=== PATIENT | female | born 1985 | race Caucasian/White ===

== ENCOUNTER 2016-10-07 07:01 | Emergency (ER) | payer OTHER | END 2016-10-07 07:30 | disposition left against medical advice (07) | LOC: M ED 07:01 | DX: R10.9 Unspecified abdominal pain (principal); Z53.29 Procedure and treatment not carried out because of patient's decision for other reasons ==

== ENCOUNTER → 2016-12-27 | Outpatient (REF) | payer OTHER | LOC: M SFHCLERA 19:33 | PROVIDERS: ATTEND Nurse Practitioner Family | DX: R50.9 Fever, unspecified (principal) ==

== ENCOUNTER → 2017-02-04 | Outpatient (REF) | payer OTHER | LOC: M SFHCLERA 10:47 | PROVIDERS: ATTEND Physician Assistant | DX: J02.9 Acute pharyngitis, unspecified (principal) ==

== ENCOUNTER → 2018-12-23 | Outpatient (CLI) | payer OTHER ==
[2018-12-23 10:11] LABS: HEMATOCRIT 39.9 % (36.0-47.0); HEMOGLOBIN 12.6 g/dl (12.0-15.5); MEAN CORPUSCULAR HEMOGLOBIN 27.6 pg (27.0-33.0); MEAN CORPUSCULAR HGB CONC 31.6 g/dl (32.0-36.5); MEAN CORPUSCULAR VOLUME 87.3 fl (80.0-96.0); PLATELET COUNT, AUTOMATED 320 10^3/uL (150-450); RED BLOOD COUNT 4.57 10^6/uL (4.00-5.40); WHITE BLOOD COUNT 9.8 10^3/uL (4.0-10.0)
[2018-12-23 10:36] LABS: ALBUMIN 3.8 GM/DL (3.2-5.2); ALT/SGPT 18 U/L (12-78); BILIRUBIN,TOTAL 0.5 MG/DL (0.2-1.0); BLOOD UREA NITROGEN 11 MG/DL (7-18); CALCIUM LEVEL 8.7 MG/DL (8.5-10.1); CARBON DIOXIDE LEVEL 25 MEQ/L (21-32); CHLORIDE LEVEL 109 MEQ/L (98-107); CHOLESTEROL LEVEL 141 MG/DL (<200); CHOLESTEROL RISK RATIO 3.357 (<5); CREATININE FOR GFR 0.63 MG/DL (0.55-1.30); GLOMERULAR FILTRATION RATE > 60.0 (>60); GLUCOSE, FASTING 90 MG/DL (70-100); HDL CHOLESTEROL 42 MG/DL (>40); LDL CHOLESTEROL 76 MG/DL (<100); NON-HDL-C 99 MG/DL; POTASSIUM SERUM 4.3 MEQ/L (3.5-5.1); SODIUM LEVEL 140 MEQ/L (136-145); THYROID STIMULATING HORMONE 0.266 uIU/ML (0.358-3.740); TOTAL PROTEIN 6.9 GM/DL (6.4-8.2); TRIGLYCERIDES LEVEL 114 MG/DL (<150)
[2018-12-23 10:37] LABS: TOTAL 25(OH) VITAMIN D 25.6 NG/ML (30.0-100.0)
== END ==
LOC: M LAB 09:22
PROVIDERS: ATTEND Nurse Practitioner Family
DX: R53.83 Other fatigue (principal); E55.9 Vitamin D deficiency, unspecified; Z83.3 Family history of diabetes mellitus; Z82.49 Family history of ischemic heart disease and other diseases of the circulatory system

== ENCOUNTER → 2018-12-24 | Outpatient (CLI) | payer OTHER ==
[2018-12-24 09:55] LABS: FREE T3 3.1 PG/ML (2.2-4.0); THYROXINE (T4) 9.8 UG/DL (4.5-12.0)
[2018-12-24 09:58] LABS: THYROID PEROXIDASE ANTIBODY < 28.0 U/ML (<60.0)
== END ==
LOC: M LAB 08:39
PROVIDERS: ATTEND Nurse Practitioner Family
DX: R53.83 Other fatigue (principal)

== ENCOUNTER → 2019-02-05 | Outpatient (REF) | payer OTHER | LOC: M LAB REF 11:53 | PROVIDERS: ATTEND Internal Medicine Endocrinology, Diabetes & Metabolism | DX: E04.1 Nontoxic single thyroid nodule (principal) ==

== ENCOUNTER 2019-03-03 08:52 | Day surgery (SDC) | payer OTHER ==
[~2019-03-03] VITALS: Ht 170.2 cm; Wt 68.9 kg
[~2019-03-03 08:52] MED LIST: LIDOCAINE 1% MDV 20ML VIAL SQ PRN; LR 1,000 ML IV ONE; SERT25TA85 PO; ceFAZolin SOD 1 GM in D5W MINI-BAG PLUS 50 ML IV ONE
[2019-03-03 09:06] VITALS: BP 105/78
[2019-03-03] MEDS: BUPIVACAINE/EPIN 0.25% 30 ML VIAL As Ordered ONE ×2 (09:45→09:46)
[2019-03-03] MEDS ORDERED: ONDANSETRON 4MG/2ML VIAL (J2405) As Ordered ONE (10:08)
[2019-03-03] MEDS ORDERED: MIDAZOLAM INJ 2 MG/2 ML VIAL (J2250) As Ordered ONE (10:08)
[2019-03-03] MEDS ORDERED: fentaNYL 100 MCG/2 ML INJECTION (J3010) As Ordered ONE (10:08)
[2019-03-03] MEDS ORDERED: dexameTHASONE 4 MG/ML 1ML VIAL (J1100) As Ordered ONE (10:08)
[2019-03-03] MEDS ORDERED: LIDOCAINE 2% INJ 100 MG/5 ML SDV (FOR ANES.) As Ordered ONE (10:08)
[2019-03-03] MEDS ORDERED: PROPOFOL 200 MG/20 ML VIAL As Ordered ONE (10:08)
[2019-03-03] MEDS ORDERED: KETOROLAC 60 MG/2 ML VIAL (J1885) As Ordered ONE (10:08)
[2019-03-03] MEDS ORDERED: ePHEDrine SULFATE 25 MG/5 ML(5MG/ML) SYRINGE As Ordered ONE (10:18)
--- NOTE | 2019-03-03 10:47 | RO ---
DATE OF PROCEDURE: 03/03/2019 PREOPERATIVE DIAGNOSIS: Right breast mass. POSTOPERATIVE DIAGNOSIS: Right breast mass. PROCEDURE: Right breast lumpectomy. SURGEON: Dr. Rocky Mark MARKETING CONTENT MANAGER: ANESTHESIA: IV sedation plus local. ESTIMATED BLOOD LOSS: Minimal. FLUIDS: Crystalloid. BRIEF PROCEDURE SUMMARY: The patient was taken operating room and was given general anesthesia. After adequate anesthesia and preoperative antibiotics were given. the patient was prepped and draped in the usual sterile fashion. Next, a periareolar incision was made after identifying the lump and after placing local in this area. The incision was made with not only skin knife but electrocautery was used to cut through dermis and underlying subcutaneous tissue. The lesion was well visualized and was taken down with a combination of blunt and sharp dissection. This was removed in its entirety and sent to pathology. Next, the operative field was clean and dry and the dermis was brought together with #3-0 Vicryl and #4-0 Vicryl subcuticular was used to approximate the skin. Steri-Strips and a dry sterile dressing was applied. The patient was awakened from her sedation and brought to the recovery room awake, alert and hemodynamically stable. Sponge and needle counts correct times two.
== END 2019-03-03 11:31 | disposition home or self-care (01) ==
LOC: M SDC 08:52
PROVIDERS: ATTEND Surgery
DX: D24.1 Benign neoplasm of right breast (principal); F41.9 Anxiety disorder, unspecified; Z79.899 Other long term (current) drug therapy; Z98.51 Tubal ligation status; Z72.0 Tobacco use
CPT/HCPCS: 19301; 88305; J0690; J1100; J1885; J2250; J2405; J3010

== ENCOUNTER → 2021-02-02 | Outpatient (CLI) | payer OTHER ==
[~2021-02-02] MED LIST changes: -LIDOCAINE 1% MDV 20ML VIAL SQ PRN; -LR 1,000 ML IV ONE; -ceFAZolin SOD 1 GM in D5W MINI-BAG PLUS 50 ML IV ONE
== END ==
LOC: M WUC 13:01
PROVIDERS: ATTEND Registered Nurse
DX: M21.6X9 Other acquired deformities of unspecified foot (principal)

== ENCOUNTER → 2021-07-04 | Outpatient (CLI) | payer OTHER ==
--- NOTE | 2021-07-04 15:00 | REP ---
INDICATION: LOW BACK AND HIP PAIN COMPARISON: 04/24/2016 TECHNIQUE: AP, lateral, bilateral oblique, and coned-down views of the lumbar spine. FINDINGS: Alignment and lordosis maintained. Vertebral bodies are intact. No acute fracture/compression injury or subluxation. Disc spaces are relatively normal/age-appropriate. No obvious spondylolysis or spondylolisthesis. IMPRESSION: Normal age-appropriate lumbosacral Spine series. <Electronically signed by Kvng Nunez > 07/04/21 [id number]
--- NOTE | 2021-07-04 15:00 | REP ---
INDICATION: LOW BACK AND HIP PAIN. COMPARISON: None. TECHNIQUE: A single AP view of the pelvis was performed. FINDINGS: The hip joint spaces are symmetric and relatively well maintained. There is no acute fracture or destructive osseous lesion. IMPRESSION: Within normal limits <Electronically signed by Patrice Ruiz > 07/04/21 [id number]
[2021-07-04 16:09] LABS: HEMATOCRIT 43.2 % (36.0-47.0); HEMOGLOBIN 13.6 g/dl (12.0-15.5); MEAN CORPUSCULAR HEMOGLOBIN 28.4 pg (27.0-33.0); MEAN CORPUSCULAR HGB CONC 31.5 g/dl (32.0-36.5); MEAN CORPUSCULAR VOLUME 90.2 fl (80.0-96.0); PLATELET COUNT, AUTOMATED 328 10^3/uL (150-450); RED BLOOD COUNT 4.79 10^6/uL (4.00-5.40)
[2021-07-04 16:41] LABS: ALT/SGPT 14 U/L (12-78); BILIRUBIN,TOTAL 0.5 MG/DL (0.2-1.0); BLOOD UREA NITROGEN 10 MG/DL (7-18); CALCIUM LEVEL 9.3 MG/DL (8.5-10.1); CARBON DIOXIDE LEVEL 26 MEQ/L (21-32); CHLORIDE LEVEL 105 MEQ/L (98-107); CHOLESTEROL LEVEL 141 MG/DL (<200); CHOLESTEROL RISK RATIO 2.877 (<5); CREATININE FOR GFR 0.66 MG/DL (0.55-1.30); FERRITIN 27 NG/ML (8-252); FREE T3 3.1 PG/ML (2.2-4.0); FREE T4 1.18 NG/DL (0.76-1.46); GLOMERULAR FILTRATION RATE > 60.0 (>60); GLUCOSE, FASTING 104 MG/DL (70-100); HDL CHOLESTEROL 49 MG/DL (>40); IRON (FE) 73 UG/DL (50-170); LDL CHOLESTEROL 70 MG/DL (<100); NON-HDL-C 92 MG/DL; PERCENT SATURATION 18.7 % (13.2-45.0); POTASSIUM SERUM 3.1 MEQ/L (3.5-5.1); SODIUM LEVEL 139 MEQ/L (136-145); TOTAL IRON BINDING CAPACITY 390 UG/DL (250-450); TOTAL PROTEIN 7.7 GM/DL (6.4-8.2); TRIGLYCERIDES LEVEL 112 MG/DL (<150)
[2021-07-04 16:47] LABS: TOTAL 25(OH) VITAMIN D 29.8 NG/ML (30.0-100.0); VITAMIN B12 LEVEL 254 PG/ML (247-911)
== END ==
LOC: M WUC 14:27
PROVIDERS: ATTEND Registered Nurse
DX: Z13.220 Encounter for screening for lipoid disorders (principal); M54.50 Low back pain, unspecified; M25.559 Pain in unspecified hip; R53.83 Other fatigue

== ENCOUNTER 2023-01-13 15:13 | Observation (INO) | payer OTHER ==
[~2023-01-13] VITALS: Ht 170.2 cm; Wt 60.3 kg
[2023-01-13 15:42] LABS: BASO # 0.1 10^3/uL (0.0-0.2); BASO % 0.5 % (0.0-1.0); EOS % 0.2 % (0.0-3.0); HEMATOCRIT 36.3 % (36.0-47.0); HEMOGLOBIN 11.8 g/dl (12.0-15.5); LYMPH # 1.4 10^3/uL (1.5-5.0); LYMPH % 12.3 % (24.0-44.0); MEAN CORPUSCULAR HEMOGLOBIN 27.8 pg (27.0-33.0); MEAN CORPUSCULAR HGB CONC 32.5 g/dl (32.0-36.5); MEAN CORPUSCULAR VOLUME 85.4 fl (80.0-96.0); MONO # 0.7 10^3/uL (0.0-0.8); MONO % 6.5 % (2.0-8.0); NEUTROPHILS # 8.9 10^3/uL (1.5-8.5); PLATELET COUNT, AUTOMATED 396 10^3/uL (150-450); RED BLOOD COUNT 4.25 10^6/uL (4.00-5.40); WHITE BLOOD COUNT 11.1 10^3/uL (4.0-10.0)
[2023-01-13] MEDS ORDERED: ONDA4TAB6 PO (15:54)
[2023-01-13] MEDS ORDERED: PROT1TAB2 PO (15:54)
[2023-01-13] MEDS ORDERED: KCL 10MEQ/100ML SWI (KRUN) 10 MEQ in IV 1 EA IV ONE ×3 (15:55→19:25)
[2023-01-13 16:02] LABS: LIPASE 27 U/L (12-53)
[2023-01-13 16:04] LABS: CPK CREATINE PHOSPHOKINASE 40 U/L (34-145)
[2023-01-13 16:05] LABS: ALBUMIN 3.6 G/DL (3.2-5.2); ALKALINE PHOSPHATASE 57 U/L (46-116); ALT/SGPT 9 U/L (7.0-40); AST/SGOT 12 U/L (<34); BILIRUBIN,DIRECT 0.3 MG/DL (<0.4); BILIRUBIN,TOTAL 0.7 MG/DL (0.3-1.2); CK-MB VALUE MASS < 1.0 NG/ML (<3.6); PROTHROMBIN TIME 13.4 SECONDS (12.5-14.5)
[2023-01-13] MEDS ORDERED: ISOVUE-370 76% 100ML VIAL As Ordered ONE (16:05)
[2023-01-13] MEDS ORDERED: ONDANSETRON 4MG 2ML VIAL IV ONE (16:30)
[2023-01-13 16:31] LABS: RSV AMPLIFICATION NEGATIVE (NEGATIVE)
[2023-01-13] MEDS ORDERED: ONDANSETRON 4MG 2ML VIAL As Ordered ONE (16:33)
[2023-01-13 17:07] LABS: AMPHETAMINES LEVEL URINE NEGATIVE (NEGATIVE); BARBITURATES URINE NEGATIVE (NEGATIVE); BENZODIAZEPINES URINE NEGATIVE (NEGATIVE); METHADONE URINE NEGATIVE (NEGATIVE); PHENCYCLIDINE URINE NEGATIVE (NEGATIVE)
[2023-01-13 17:09] LABS: CANNABINOIDS URINE POSITIVE (NEGATIVE); COCAINE METABOLITE URINE POSITIVE (NEGATIVE); OPIATES URINE POSITIVE (NEGATIVE)
[2023-01-13] MEDS ORDERED: PROMETHAZINE 25MG/ML 1ML VIAL IV ONE (17:30)
[2023-01-13 17:43] LABS: MAGNESIUM LEVEL 1.8 MG/DL (1.8-2.4)
[2023-01-13] MEDS ORDERED: HALOPERIDOL 5MG/ML 1ML VIAL IV STA (19:04)
[2023-01-13] MEDS ORDERED: HALOPERIDOL 5MG/ML 1ML VIAL As Ordered ONE (19:07)
[2023-01-13] MEDS ORDERED: POTASSIUM CHLORIDE 10% LIQ 20MEQ/15ML UDC PO ONE (19:45)
[2023-01-13] MEDS: ONDANSETRON 4MG 2ML VIAL IV PRN (20:34)
[2023-01-13] MEDS ORDERED: HYDR-3713 PO (20:46)
[2023-01-13] MEDS ORDERED: POTA-298 PO (20:46)
[2023-01-13] MEDS ORDERED: CEFD300C41 PO (20:46)
[2023-01-13] MEDS ORDERED: HOME MED LIST COMPLETE! XX SCH (20:50)
[2023-01-13 21:49] VITALS: BP 119/74
[2023-01-13] MEDS ORDERED: NS 500 ML IV ONE (22:55)
[2023-01-13] MEDS: PROCHLORPERAZINE 10MG 2ML VIAL IM PRN (23:22)
[2023-01-13] MEDS: PANTOPRAZOLE 40MG VIAL IV SCH (23:22)
[2023-01-13] MEDS: KETOROLAC 30 MG/ML 1ML VIAL IV PRN (23:23)
[2023-01-13] MEDS: KCL 10MEQ/100ML SWI (KRUN) 10 MEQ in IV 1 EA IV SCH (23:24)
[2023-01-14] VITALS (7 sets, daily range): BP systolic 111–143; BP diastolic 55–75
[2023-01-14 00:07] LABS: VENOUS BASE EXCESS -7.6 (-2.0-2.0); VENOUS HCO3 14.5 MMOL/L (23.0-27.0); VENOUS O2 SATURATION 99.3 % (60.0-80.0); VENOUS PARTIAL PRESSURE O2 244.5 mmHg (30.0-50.0); VENOUS PH 7.456 UNITS (7.330-7.430); VENOUS STANDARD HCO3 18.4 MMOL/L; VENOUS TOTAL CO2 15.1 MMOL/L (24.0-28.0)
[2023-01-14] MEDS: KCL 10MEQ/100ML SWI (KRUN) 10 MEQ in IV 1 EA IV SCH ×3 (00:35→02:39)
[2023-01-14] MEDS ORDERED: KCL 40MEQ in NS 1000ML 1,000 ML IV SCH (04:00)
[2023-01-14 04:46] LABS: HEMATOCRIT 31.1 % (36.0-47.0)
[2023-01-14 04:51] LABS: HEMOGLOBIN 9.7 g/dl (12.0-15.5)
[2023-01-14 05:13] LABS: BLOOD UREA NITROGEN < 5 MG/DL (9-23); CALCIUM LEVEL 7.4 MG/DL (8.5-10.1); CARBON DIOXIDE LEVEL 14 MMOL/L (20-31); CHLORIDE LEVEL 108 MMOL/L (98-107); CREATININE FOR GFR 0.53 MG/DL (0.55-1.30); GLOMERULAR FILTRATION RATE > 60.0 (>60); GLUCOSE, FASTING 66 MG/DL (60-100); POTASSIUM SERUM 3.3 MMOL/L (3.5-5.1); SODIUM LEVEL 136 MMOL/L (136-145)
[2023-01-14] MEDS: PROCHLORPERAZINE 10MG 2ML VIAL IM PRN ×3 (05:29→18:21)
[2023-01-14] MEDS: KETOROLAC 30 MG/ML 1ML VIAL IV PRN (06:12)
[2023-01-14 07:22] LABS: MAGNESIUM LEVEL 1.7 MG/DL (1.8-2.4)
[2023-01-14 07:35] LABS: BASO % 0.4 % (0.0-1.0); EOS % 0.3 % (0.0-3.0); LYMPH # 2.2 10^3/uL (1.5-5.0); LYMPH % 20.5 % (24.0-44.0); MEAN CORPUSCULAR HEMOGLOBIN 28.8 pg (27.0-33.0); MEAN CORPUSCULAR HGB CONC 32.5 g/dl (32.0-36.5); MEAN CORPUSCULAR VOLUME 88.8 fl (80.0-96.0); MONO # 0.8 10^3/uL (0.0-0.8); MONO % 7.2 % (2.0-8.0); NEUTROPHILS # 7.5 10^3/uL (1.5-8.5); NEUTROPHILS % 71.1 % (36.0-66.0); PLATELET COUNT, AUTOMATED 346 10^3/uL (150-450); WHITE BLOOD COUNT 10.6 10^3/uL (4.0-10.0)
[2023-01-14] MEDS: ONDANSETRON 4MG 2ML VIAL IV PRN ×2 (07:54→13:34)
[2023-01-14] MEDS: PANTOPRAZOLE 40MG VIAL IV SCH ×2 (10:32→22:07)
[2023-01-14] MEDS ORDERED: POTASSIUM CHLORIDE 10MEQ SR TABLET PO ONE (10:50)
[2023-01-14] MEDS ORDERED: POTASSIUM CHLORIDE 10% LIQ 20MEQ/15ML UDC PO ONE (11:00)
[2023-01-14] MEDS ORDERED: MAG SULF 1GM/100ML (MAG RUN) 1 GM in IV 1 EA IV ONE (11:00)
[2023-01-14] MEDS: MAG SULF 1GM/100ML (MAG RUN) 1 GM in IV 1 EA IV SCH ×2 (11:31→13:01)
[2023-01-14 12:28] LABS: BASO % 0.3 % (0.0-1.0); EOS % 0.2 % (0.0-3.0); HEMATOCRIT 35.4 % (36.0-47.0); HEMOGLOBIN 10.9 g/dl (12.0-15.5); LYMPH # 1.8 10^3/uL (1.5-5.0); MEAN CORPUSCULAR HEMOGLOBIN 27.7 pg (27.0-33.0); MEAN CORPUSCULAR HGB CONC 30.8 g/dl (32.0-36.5); MEAN CORPUSCULAR VOLUME 89.8 fl (80.0-96.0); MONO # 0.6 10^3/uL (0.0-0.8); MONO % 6.1 % (2.0-8.0); NEUTROPHILS # 6.8 10^3/uL (1.5-8.5); NEUTROPHILS % 73.9 % (36.0-66.0); PLATELET COUNT, AUTOMATED 360 10^3/uL (150-450); RED BLOOD COUNT 3.94 10^6/uL (4.00-5.40); WHITE BLOOD COUNT 9.2 10^3/uL (4.0-10.0)
[2023-01-14] MEDS: POTASSIUM CHLORIDE INJ 40 MEQ in D5W/LR 1,000 ML IV SCH (14:27)
[2023-01-15] MEDS: POTASSIUM CHLORIDE INJ 40 MEQ in D5W/LR 1,000 ML IV SCH (00:41)
[2023-01-15 03:31] VITALS: BP 105/53
[2023-01-15 04:36] LABS: HEMATOCRIT 31.5 % (36.0-47.0); HEMOGLOBIN 9.7 g/dl (12.0-15.5); MEAN CORPUSCULAR HEMOGLOBIN 27.7 pg (27.0-33.0); MEAN CORPUSCULAR HGB CONC 30.8 g/dl (32.0-36.5); PLATELET COUNT, AUTOMATED 321 10^3/uL (150-450); WHITE BLOOD COUNT 6.8 10^3/uL (4.0-10.0)
[2023-01-15 05:00] LABS: BLOOD UREA NITROGEN < 5 MG/DL (9-23); CALCIUM LEVEL 7.8 MG/DL (8.5-10.1); CARBON DIOXIDE LEVEL 19 MMOL/L (20-31); CHLORIDE LEVEL 115 MMOL/L (98-107); CREATININE FOR GFR 0.51 MG/DL (0.55-1.30); GLOMERULAR FILTRATION RATE > 60.0 (>60); GLUCOSE, FASTING 133 MG/DL (60-100); MAGNESIUM LEVEL 2.1 MG/DL (1.8-2.4); PHOSPHORUS LEVEL 1.7 MG/DL (2.5-4.9); POTASSIUM SERUM 4.2 MMOL/L (3.5-5.1); SODIUM LEVEL 139 MMOL/L (136-145)
[2023-01-15 08:15] VITALS: BP 127/79
[2023-01-15] MEDS ORDERED: POTASSIUM PHOSPHATE INJ 15 MMOL in D5W 250 ML IV ONE (09:00)
[2023-01-15] MEDS: PANTOPRAZOLE 40MG VIAL IV SCH (12:02)
== END 2023-01-15 12:32 | disposition home or self-care (01) ==
LOC: EDBD 15:13 → M ED 15:13 → M ED INP 15:14 → M PCU 21:48
PROVIDERS: ADMIT Internal Medicine; ATTEND Internal Medicine
DX: K92.0 Hematemesis (principal); F12.90 Cannabis use, unspecified, uncomplicated; N83.202 Unspecified ovarian cyst, left side; R10.9 Unspecified abdominal pain; E87.6 Hypokalemia; E83.51 Hypocalcemia; J90 Pleural effusion, not elsewhere classified; Z79.2 Long term (current) use of antibiotics; F17.210 Nicotine dependence, cigarettes, uncomplicated
CPT/HCPCS: 36415; 71045; 71260; 74177; 76830; 76856; 80047; 80048; 80069; 80076; 80307; 81001; 82010; 82330; 82550; 82553; 82803; 83605; 83690; 83735; 85025; 85027; 85610; 87086; 87631; 93005; 93041; 93976; 94760; 96365; 96366; 96367; 96372; 96375; 96376; 99285; C9113; J0780; J1630; J1885; J2405; J2550; J3475; Q9967

== ENCOUNTER 2023-01-16 20:24 | Emergency (ER) | payer OTHER ==
[~2023-01-16] VITALS: Ht 170.2 cm; Wt 59.1 kg
[~2023-01-16 20:24] MED LIST changes: -E-Z-GAS II EFFERVESCENT PACKET (SODIUM BICARB./CITRIC ACID/SIMETHICONE) As Ordered ONE; -E-Z-HD 98% w/w 340GM SUSP BTL As Ordered ONE; -E-Z-PAQUE 96% w/w SUSP 176GM BTL As Ordered ONE
[2023-01-16 20:55] LABS: BASO # 0.1 10^3/uL (0.0-0.2); BASO % 0.6 % (0.0-1.0); EOS % 0.3 % (0.0-3.0); HEMATOCRIT 37.3 % (36.0-47.0); LYMPH % 9.1 % (24.0-44.0); MEAN CORPUSCULAR HEMOGLOBIN 28.7 pg (27.0-33.0); MEAN CORPUSCULAR HGB CONC 33.8 g/dl (32.0-36.5); MONO # 0.6 10^3/uL (0.0-0.8); NEUTROPHILS # 8.8 10^3/uL (1.5-8.5); NEUTROPHILS % 83.4 % (36.0-66.0); PLATELET COUNT, AUTOMATED 386 10^3/uL (150-450); RED BLOOD COUNT 4.39 10^6/uL (4.00-5.40); WHITE BLOOD COUNT 10.5 10^3/uL (4.0-10.0)
[2023-01-16 21:09] LABS: INR 1.11; PROTHROMBIN TIME 14.5 SECONDS (12.5-14.5)
[2023-01-16 21:13] LABS: CK-MB VALUE MASS < 1.0 NG/ML (<3.6); LIPASE 34 U/L (12-53)
[2023-01-16 21:28] LABS: HEMOGLOBIN 12.6 g/dl (12.0-15.5)
[2023-01-16 21:57] LABS: THYROID STIMULATING HORMONE 0.619 uIU/ML (0.55-4.78)
[2023-01-16 22:03] LABS: ALBUMIN 3.9 G/DL (3.2-5.2); ALKALINE PHOSPHATASE 68 U/L (46-116); ALT/SGPT 1368 U/L (7.0-40); AST/SGOT 2041 U/L (<34); BILIRUBIN,DIRECT 0.7 MG/DL (<0.4); BILIRUBIN,TOTAL 1.2 MG/DL (0.3-1.2); BLOOD UREA NITROGEN 8 MG/DL (9-23); CALCIUM LEVEL 8.6 MG/DL (8.5-10.1); CARBON DIOXIDE LEVEL 19 MMOL/L (20-31); CHLORIDE LEVEL 102 MMOL/L (98-107); CPK CREATINE PHOSPHOKINASE 289 U/L (34-145); CREATININE FOR GFR 0.48 MG/DL (0.55-1.30); GLOMERULAR FILTRATION RATE > 60.0 (>60); GLUCOSE, FASTING 91 MG/DL (60-100); MB/CK RELATIVE INDEX 0.34 (< OR =4); POTASSIUM SERUM 3.5 MMOL/L (3.5-5.1); SODIUM LEVEL 136 MMOL/L (136-145); TOTAL PROTEIN 6.7 G/DL (5.7-8.2)
[2023-01-16 22:30] LABS: CK-MB VALUE MASS < 1.0 NG/ML (<3.6)
[2023-01-16 22:33] LABS: CPK CREATINE PHOSPHOKINASE 295 U/L (34-145); MB/CK RELATIVE INDEX 0.33 (< OR =4)
[2023-01-17 01:36] LABS: ETHYL ALCOHOL (ETHANOL) < 0.003 % (0.000-0.010)
[2023-01-17] MEDS ORDERED: MORPHINE 4 MG/ML 1ML VIAL IV ONE (01:55)
[2023-01-17] MEDS ORDERED: ONDANSETRON 4MG 2ML VIAL IV ONE (01:55)
[2023-01-17] MEDS ORDERED: NS 1,000 ML IV ONE (01:55)
[2023-01-17 02:01] LABS: AMPHETAMINES LEVEL URINE NEGATIVE (NEGATIVE); BENZODIAZEPINES URINE NEGATIVE (NEGATIVE); PHENCYCLIDINE URINE NEGATIVE (NEGATIVE)
[2023-01-17 02:02] LABS: BARBITURATES URINE NEGATIVE (NEGATIVE); INR 1.43; METHADONE URINE NEGATIVE (NEGATIVE); PROTHROMBIN TIME 17.7 SECONDS (12.5-14.5)
[2023-01-17 02:03] LABS: CANNABINOIDS URINE POSITIVE (NEGATIVE); COCAINE METABOLITE URINE POSITIVE (NEGATIVE); OPIATES URINE POSITIVE (NEGATIVE)
[2023-01-17] MEDS: NS 1,000 ML IV SCH ×2 (03:21→11:44)
[2023-01-17 03:39] LABS: HEPATITIS B SURFACE ANTIGEN NEGATIVE (NEGATIVE)
[2023-01-17 03:59] LABS: HEPATITIS B CORE ANTIBODY IGM NEGATIVE (NEGATIVE)
[2023-01-17] MEDS ORDERED: HALOPERIDOL 5MG/ML 1ML VIAL IV ONE (04:00)
[2023-01-17] MEDS: MORPHINE 4 MG/ML 1ML VIAL IV PRN ×4 (05:23→14:56)
[2023-01-17 05:42] LABS: BASO % 0.3 % (0.0-1.0); HEMATOCRIT 33.5 % (36.0-47.0); HEMOGLOBIN 11.1 g/dl (12.0-15.5); LYMPH # 0.7 10^3/uL (1.5-5.0); LYMPH % 6.8 % (24.0-44.0); MEAN CORPUSCULAR HEMOGLOBIN 28.6 pg (27.0-33.0); MEAN CORPUSCULAR HGB CONC 33.1 g/dl (32.0-36.5); MEAN CORPUSCULAR VOLUME 86.3 fl (80.0-96.0); MONO # 0.7 10^3/uL (0.0-0.8); MONO % 6.1 % (2.0-8.0); NEUTROPHILS # 9.2 10^3/uL (1.5-8.5); NEUTROPHILS % 86.1 % (36.0-66.0); PLATELET COUNT, AUTOMATED 336 10^3/uL (150-450); RED BLOOD COUNT 3.88 10^6/uL (4.00-5.40); WHITE BLOOD COUNT 10.7 10^3/uL (4.0-10.0)
[2023-01-17 06:13] LABS: LIPASE 72 U/L (12-53)
[2023-01-17 07:04] LABS: ALBUMIN 3.4 G/DL (3.2-5.2); ALKALINE PHOSPHATASE 64 U/L (46-116); ALT/SGPT 4141 U/L (7.0-40); BILIRUBIN,DIRECT 0.5 MG/DL (<0.4); BILIRUBIN,TOTAL 0.9 MG/DL (0.3-1.2)
[2023-01-17 07:19] LABS: AST/SGOT > 6000 U/L (<34)
[2023-01-17] MEDS ORDERED: METOCLOPRAMIDE INJ 10MG/2ML VIAL IV ONE (11:35)
[2023-01-17] MEDS ORDERED: NS 1,000 ML IV SCH (12:20)
[2023-01-17 14:58] VITALS: BP 127/80
== END 2023-01-17 15:01 | disposition short-term general hospital (02) ==
LOC: M ED 20:24 → EDBD 20:24 → M ED 01-17 15:01
DX: R74.01 Elevation of levels of liver transaminase levels (principal); F12.10 Cannabis abuse, uncomplicated; N83.209 Unspecified ovarian cyst, unspecified side; F17.200 Nicotine dependence, unspecified, uncomplicated; Z79.899 Other long term (current) drug therapy
CPT/HCPCS: 71045; 74181; 76705; 80048; 80076; 80143; 80307; 82077; 82550; 82553; 83605; 83690; 84443; 85025; 85610; 86705; 86709; 86803; 87340; 93005; 96365; 96366; 96375; 96376; 99285; J1630; J2405; J2765

== ENCOUNTER → 2023-01-16 | Outpatient (CLI) | payer OTHER ==
[~2023-01-16] MED LIST changes: +CEFD300C41 PO; +E-Z-GAS II EFFERVESCENT PACKET (SODIUM BICARB./CITRIC ACID/SIMETHICONE) As Ordered ONE; +E-Z-HD 98% w/w 340GM SUSP BTL As Ordered ONE; +E-Z-PAQUE 96% w/w SUSP 176GM BTL As Ordered ONE; +HYDR-3713 PO; +ONDA4TAB6 PO; +POTA-298 PO; +PROT1TAB2 PO
== END ==
LOC: M RAD 09:31
PROVIDERS: ATTEND Registered Nurse
DX: K27.9 Peptic ulcer, site unspecified, unspecified as acute or chronic, without hemorrhage or perforation (principal)

== ENCOUNTER → 2023-01-25 | Outpatient (CLI) | payer OTHER ==
[2023-01-25 12:34] LABS: APPEARANCE, URINE HAZY (CLEAR); BACTERIA, URINE AUTO NEGATIVE (NEGATIVE); BILIRUBIN, URINE AUTO NEGATIVE (NEGATIVE); BLOOD, URINE BLOOD 1+ (NEGATIVE); COLOR, URINE YELLOW (YELLOW); GLUCOSE, URINE (UA) AUTO NEGATIVE (NEGATIVE); KETONE, URINE AUTO NEGATIVE (NEGATIVE); LEUKOCYTE ESTERASE, URINE AUTO NEGATIVE (NEGATIVE); MUCUS, URINE SMALL (NEGATIVE); NITRITE, URINE AUTO NEGATIVE (NEGATIVE); PROTEIN, URINE AUTO NEGATIVE (NEGATIVE); RBC, URINE AUTO 0 /HPF (0-3); SPECIFIC GRAVITY URINE AUTO 1.015 (1.002-1.035); SQUAMOUS EPITHELIAL CELL UR AU 4 /HPF (0-6); UROBILINOGEN, URINE AUTO 0.2 mg/dL (0.0-2.0); WBC, URINE AUTO 0 /HPF (0-3)
[2023-01-25 12:38] LABS: HEMATOCRIT 37.1 % (36.0-47.0); HEMOGLOBIN 11.3 g/dl (12.0-15.5); MEAN CORPUSCULAR HEMOGLOBIN 27.8 pg (27.0-33.0); MEAN CORPUSCULAR HGB CONC 30.5 g/dl (32.0-36.5); MEAN CORPUSCULAR VOLUME 91.2 fl (80.0-96.0); PLATELET COUNT, AUTOMATED 332 10^3/uL (150-450); RED BLOOD COUNT 4.07 10^6/uL (4.00-5.40); WHITE BLOOD COUNT 7.4 10^3/uL (4.0-10.0)
[2023-01-25 13:00] LABS: ALBUMIN 3.5 G/DL (3.2-5.2); ALKALINE PHOSPHATASE 58 U/L (46-116); ALT/SGPT 274 U/L (7.0-40); AST/SGOT 23 U/L (<34); BILIRUBIN,DIRECT 0.3 MG/DL (<0.4); BILIRUBIN,TOTAL 0.7 MG/DL (0.3-1.2); BLOOD UREA NITROGEN 9 MG/DL (9-23); CALCIUM LEVEL 8.9 MG/DL (8.5-10.1); CARBON DIOXIDE LEVEL 26 MMOL/L (20-31); CHLORIDE LEVEL 104 MMOL/L (98-107); CHOLESTEROL LEVEL 127 MG/DL (<200); CHOLESTEROL RISK RATIO 3.01 (<5); GLOMERULAR FILTRATION RATE > 60.0 (>60); GLUCOSE, FASTING 91 MG/DL (60-100); HDL CHOLESTEROL 42.1 MG/DL (>40); LDL CHOLESTEROL 63.7 MG/DL (<100); NON-HDL-C 84.9 MG/DL; POTASSIUM SERUM 4.1 MMOL/L (3.5-5.1); SODIUM LEVEL 139 MMOL/L (136-145); TOTAL PROTEIN 6.5 G/DL (5.7-8.2); TRIGLYCERIDES LEVEL 106 MG/DL (<150)
[2023-01-25 13:13] LABS: HEPATITIS B SURFACE ANTIGEN NEGATIVE (NEGATIVE)
[2023-01-25 13:32] LABS: HEPATITIS B CORE ANTIBODY IGM NEGATIVE (NEGATIVE); HEPATITIS C VIRUS ABY INDEX 0.1 INDEX (<0.8)
== END ==
LOC: M WUC 10:10
PROVIDERS: ATTEND Registered Nurse
DX: R74.01 Elevation of levels of liver transaminase levels (principal); Z13.220 Encounter for screening for lipoid disorders; E87.6 Hypokalemia

== ENCOUNTER → 2023-07-19 | Outpatient (CLI) | payer OTHER ==
[~2023-07-19] MED LIST changes: -CEFD300C41 PO; +CEFD300C42 PO
[2023-07-19 17:28] LABS: HEMATOCRIT 37.4 % (36.0-47.0); HEMOGLOBIN 11.9 g/dl (12.0-15.5); MEAN CORPUSCULAR HEMOGLOBIN 29.2 pg (27.0-33.0); MEAN CORPUSCULAR HGB CONC 31.8 g/dl (32.0-36.5); MEAN CORPUSCULAR VOLUME 91.7 fl (80.0-96.0); PLATELET COUNT, AUTOMATED 281 10^3/uL (150-450); RED BLOOD COUNT 4.08 10^6/uL (4.00-5.40); WHITE BLOOD COUNT 7.6 10^3/uL (4.0-10.0)
[2023-07-19 17:54] LABS: LIPASE 34 U/L (12-53)
[2023-07-19 17:55] LABS: AMYLASE 49 U/L (30-118)
[2023-07-19 17:56] LABS: ALBUMIN 4.1 G/DL (3.2-5.2); ALKALINE PHOSPHATASE 41 U/L (46-116); ALT/SGPT 15 U/L (7.0-40); AST/SGOT 12 U/L (<34); BILIRUBIN,TOTAL 0.5 MG/DL (0.3-1.2); BLOOD UREA NITROGEN 10 MG/DL (9-23); CALCIUM LEVEL 9.1 MG/DL (8.5-10.1); CARBON DIOXIDE LEVEL 24 MMOL/L (20-31); CHLORIDE LEVEL 108 MMOL/L (98-107); CHOLESTEROL LEVEL 139 MG/DL (<200); CHOLESTEROL RISK RATIO 2.87 (<5); CREATININE FOR GFR 0.53 MG/DL (0.55-1.30); GLOMERULAR FILTRATION RATE > 60.0 (>60); GLUCOSE, FASTING 87 MG/DL (60-100); HDL CHOLESTEROL 48.4 MG/DL (>40); LDL CHOLESTEROL 62.2 MG/DL (<100); NON-HDL-C 90.6 MG/DL; POTASSIUM SERUM 3.7 MMOL/L (3.5-5.1); SODIUM LEVEL 141 MMOL/L (136-145); TRIGLYCERIDES LEVEL 142 MG/DL (<150)
[2023-07-19 17:57] LABS: FREE T4 0.98 NG/DL (0.89-1.76); THYROID STIMULATING HORMONE 0.641 uIU/ML (0.55-4.78)
== END ==
LOC: M WUC 12:49
PROVIDERS: ATTEND Physician Assistant Medical
DX: R10.13 Epigastric pain (principal); R10.12 Left upper quadrant pain; Z91.89 Other specified personal risk factors, not elsewhere classified; E04.9 Nontoxic goiter, unspecified

== ENCOUNTER → 2023-12-27 | Outpatient (CLI) | payer OTHER ==
[~2023-12-27] MED LIST changes: +CEFD1CAP9 PO; -CEFD300C42 PO
[2023-12-27 11:53] LABS: BASO % 0.7 % (0.0-1.0); EOS # 0.1 10^3/uL (0.0-0.5); LYMPH # 2.8 10^3/uL (1.5-5.0); LYMPH % 45.9 % (24.0-44.0); MEAN CORPUSCULAR HEMOGLOBIN 30.9 pg (27.0-33.0); MEAN CORPUSCULAR HGB CONC 31.4 g/dl (32.0-36.5); MEAN CORPUSCULAR VOLUME 98.3 fl (80.0-96.0); MONO # 0.5 10^3/uL (0.0-0.8); MONO % 8.5 % (2.0-8.0); NEUTROPHILS # 2.7 10^3/uL (1.5-8.5); NEUTROPHILS % 43.6 % (36.0-66.0); PLATELET COUNT, AUTOMATED 279 10^3/uL (150-450); RED BLOOD COUNT 3.56 10^6/uL (4.00-5.40); WHITE BLOOD COUNT 6.2 10^3/uL (4.0-10.0)
[2023-12-27 11:58] LABS: ALBUMIN 3.8 G/DL (3.2-5.2); ALKALINE PHOSPHATASE 40 U/L (46-116); ALT/SGPT 14 U/L (7.0-40); AST/SGOT 10 U/L (<34); BILIRUBIN,TOTAL 0.2 MG/DL (0.3-1.2); BLOOD UREA NITROGEN 10 MG/DL (9-23); CARBON DIOXIDE LEVEL 26 MMOL/L (20-31); CHLORIDE LEVEL 112 MMOL/L (98-107); CREATININE FOR GFR 0.53 MG/DL (0.55-1.30); GLOMERULAR FILTRATION RATE > 60.0 (>58); GLUCOSE, FASTING 83 MG/DL (60-100); POTASSIUM SERUM 3.8 MMOL/L (3.5-5.1); SODIUM LEVEL 142 MMOL/L (136-145); TOTAL PROTEIN 6.4 G/DL (5.7-8.2)
[2023-12-28 20:11] LABS: ENDOMYSIAL ABY IgA Negative (Negative); TISSUE TRANSGLUTAMINASE IgA <2 U/mL (0-3); TISSUE TRANSGLUTAMINASE IgG <2 U/mL (0-5)
== END ==
LOC: M WUC 09:48
PROVIDERS: ATTEND Student in an Organized Health Care Education/Training Program
DX: K21.9 Gastro-esophageal reflux disease without esophagitis (principal); K59.00 Constipation, unspecified

== ENCOUNTER → 2024-12-15 | Outpatient (CLI) | payer OTHER ==
[~2024-12-15] MED LIST changes: +ONDA-282 PO; -ONDA4TAB6 PO
[2024-12-15 12:36] LABS: HEMATOCRIT 40.6 % (36.0-47.0); HEMOGLOBIN 12.8 g/dl (12.0-15.5); MEAN CORPUSCULAR HEMOGLOBIN 30.5 pg (27.0-33.0); MEAN CORPUSCULAR HGB CONC 31.5 g/dl (32.0-36.5); MEAN CORPUSCULAR VOLUME 96.7 fl (80.0-96.0); PLATELET COUNT, AUTOMATED 272 10^3/uL (150-450); WHITE BLOOD COUNT 7.5 10^3/uL (4.0-10.0)
[2024-12-15 12:43] LABS: TOTAL IRON BINDING CAPACITY 398 UG/DL (250-425)
[2024-12-15 12:45] LABS: ALBUMIN 3.9 G/DL (3.2-5.2); ALKALINE PHOSPHATASE 47 U/L (35-104); ALT/SGPT 17 U/L (7.0-40); AST/SGOT 10 U/L (<34); BILIRUBIN,TOTAL 0.3 MG/DL (0.3-1.2); BLOOD UREA NITROGEN 10 MG/DL (9-23); CALCIUM LEVEL 9.2 MG/DL (8.5-10.1); CARBON DIOXIDE LEVEL 27 MMOL/L (20-31); CHLORIDE LEVEL 108 MMOL/L (98-107); CREATININE FOR GFR 0.63 MG/DL (0.55-1.30); FREE T4 1.06 NG/DL (0.89-1.76); GLOMERULAR FILTRATION RATE > 60.0 (>58); GLUCOSE, FASTING 97 MG/DL (60-100); IRON (FE) 39 UG/DL (50-170); PERCENT SATURATION 9.8 % (13.2-45.0); POTASSIUM SERUM 4.4 MMOL/L (3.5-5.1); SODIUM LEVEL 140 MMOL/L (136-145); THYROID STIMULATING HORMONE 0.513 uIU/ML (0.55-4.78); TOTAL PROTEIN 7.1 G/DL (5.7-8.2)
[2024-12-15 12:46] LABS: FERRITIN 5.7 NG/ML (7.3-270.7)
== END ==
LOC: M WUC 08:28
PROVIDERS: ATTEND Physician Assistant Medical
DX: D64.9 Anemia, unspecified (principal)

== ENCOUNTER → 2024-12-30 | Outpatient (REF) | payer OTHER | LOC: M LABWUC 13:58 | PROVIDERS: ATTEND Physician Assistant Medical | DX: Z02.1 Encounter for pre-employment examination (principal) ==

== ENCOUNTER 2025-06-10 09:05 | Observation (INO) | payer OTHER ==
[~2025-06-10] VITALS: Ht 172.7 cm; Wt 68.5 kg
[2025-06-10 09:33] LABS: BASO # 0.0 10^3/uL (0.0-0.2); BASO % 0.2 % (0.0-1.0); EOS # 0.0 10^3/uL (0.0-0.5); EOS % 0.1 % (0.0-3.0); LYMPH # 1.3 10^3/uL (1.5-5.0); LYMPH % 8.2 % (24.0-44.0); MONO # 0.7 10^3/uL (0.0-0.8); MONO % 4.6 % (2.0-8.0); NEUTROPHILS # 13.9 10^3/uL (1.5-8.5); NEUTROPHILS % 86.4 % (36.0-66.0); PLATELET COUNT, AUTOMATED 270 10^3/uL (150-450)
[2025-06-10] MEDS: NS (Normal Saline) 0.9% 1,000 ML IV ONE (10:01)
[2025-06-10] MEDS: diphenhydrAMINE 50 MG/ML VIAL IV ONE (10:02)
[2025-06-10] MEDS: HALOPERIDOL LACTATE 5 MG/ML VIAL IV ONE (10:03)
[2025-06-10 10:29] LABS: ALT/SGPT 32 U/L (7.0-40); AST/SGOT 29 U/L (<34); CALCIUM LEVEL 8.6 MG/DL (8.5-10.1); CARBON DIOXIDE LEVEL 20 MMOL/L (20-31); CHLORIDE LEVEL 110 MMOL/L (98-107); CREATININE FOR GFR 0.53 MG/DL (0.55-1.30); GLOMERULAR FILTRATION RATE > 90.0 (>58); POTASSIUM SERUM 3.7 MMOL/L (3.5-5.1); SODIUM LEVEL 140 MMOL/L (136-145)
[2025-06-10] MEDS: PROCHLORPERAZINE 10MG/2ML VIAL IV ONE (11:42)
[2025-06-10 11:53] LABS: AMPHETAMINES LEVEL URINE NEGATIVE (NEGATIVE); BARBITURATES URINE NEGATIVE (NEGATIVE); BENZODIAZEPINES URINE NEGATIVE (NEGATIVE); COCAINE METABOLITE URINE NEGATIVE (NEGATIVE); METHADONE URINE NEGATIVE (NEGATIVE); PHENCYCLIDINE URINE NEGATIVE (NEGATIVE)
[2025-06-10 12:26] LABS: CANNABINOIDS URINE POSITIVE (NEGATIVE); OPIATES URINE POSITIVE (NEGATIVE)
[2025-06-10] MEDS ORDERED: PANT40TA29 PO (12:57)
[2025-06-10] MEDS ORDERED: MELO15TA28 PO (12:57)
[2025-06-10] MEDS ORDERED: GABA-1172 PO (12:57)
[2025-06-10] MEDS ORDERED: TIZA10TA PO (12:57)
[2025-06-10] MEDS ORDERED: HYDR-3364 PO (12:57)
[2025-06-10] MEDS ORDERED: ZOLO100T PO (12:57)
[2025-06-10] MEDS: LR 1,000 ML IV ONE (12:58)
[2025-06-10] MEDS ORDERED: HYDR-3713 PO (12:59)
[2025-06-10] MEDS ORDERED: HOME MED LIST COMPLETE! XX SCH (13:00)
[2025-06-10 13:14] LABS: URINE PREG TEST NEGATIVE (NEGATIVE)
[2025-06-10 13:21] LABS: KETONE, URINE AUTO RFX 2+ mg/dL (NEGATIVE); LEUKOCYTE ESTERASE UR AUTO RFX NEGATIVE (NEGATIVE); NITRITE, URINE AUTO RFX NEGATIVE (NEGATIVE); RBC, URINE AUTO RFX 0 /HPF (0-3); SQUAM EPITHELIAL CELL UR AURFX 0 /HPF (0-6); WBC, URINE AUTO RFX 1 /HPF (0-3)
[2025-06-10] MEDS ORDERED: PILL CUTTER 1 EACH XX PRN (13:45)
[2025-06-10] MEDS: KETOROLAC 30 MG/ML 1 ML VIAL IV SCH (13:55)
[2025-06-10] MEDS: PANTOPRAZOLE 40MG VIAL IV ONE (13:55)
[2025-06-10 15:06] LABS: CK-MB VALUE MASS 4.6 NG/ML (<3.6)
[2025-06-10 15:07] LABS: C REACTIVE PROTEIN QUANTITATIV < 0.50 MG/DL (<1.0)
[2025-06-10 15:08] LABS: CPK CREATINE PHOSPHOKINASE 197.0 U/L (34-145); MB/CK RELATIVE INDEX 2.33 (< OR =4)
[2025-06-10 15:15] VITALS: BP 161/89; TEMP 97.7; O2SAT 96
[2025-06-10] MEDS: HYDROMORPHONE HCL 0.5 MG/0.5 ML SYRINGE IV ONE (16:04)
[2025-06-10] MEDS: ONDANSETRON 4MG 2ML VIAL IV SCH (16:04)
[2025-06-10] MEDS: NS (Normal Saline) 0.9% 1,000 ML IV SCH (16:05)
[2025-06-10] MEDS: GABAPENTIN 300 MG CAP PO SCH (16:05)
[2025-06-10 16:43] LABS: ESTIMATED AVERAGE GLUCOSE 108.0 MG/DL (60-110)
[2025-06-10] MEDS: METOPROLOL TART 25 MG TABLET PO SCH (18:00)
[2025-06-10] MEDS: SUCRALFATE 1 GM TAB PO SCH (18:22)
[2025-06-10 18:51] VITALS: BP 126/70; TEMP 97.8; O2SAT 96
[2025-06-10 20:24] VITALS: BP 105/60; TEMP 97.7; O2SAT 93
[2025-06-10] MEDS ORDERED: PANTOPRAZOLE 40MG VIAL IV SCH (21:00)
[2025-06-10] MEDS: PANTOPRAZOLE 40MG TAB PO SCH (21:21)
[2025-06-11 05:40] VITALS: BP 121/63
[2025-06-11 06:15] VITALS: BP 121/63; TEMP 98.2; O2SAT 97
[2025-06-11] MEDS: MORPHINE 4 MG/ML 1 ML VIAL IV ONE (08:04)
[2025-06-11] MEDS: LIDOCAINE 1% MDV 20 ML VIAL SC ONE (08:35)
[2025-06-11] MEDS: SERTRALINE 100 MG TAB PO SCH (08:55)
[2025-06-11] MEDS: LIDOCAINE 5% PATCH TD SCH (08:56)
[2025-06-11] MEDS ORDERED: MELOXICAM 7.5 MG TAB PO SCH (09:00)
[2025-06-11] MEDS ORDERED: SUCR1TA PO (10:31)
[2025-06-11] MEDS ORDERED: LIDO30CR18 TOP (10:31)
== END 2025-06-11 11:32 | disposition home or self-care (01) ==
LOC: EDBD 09:05 → M ED 09:05 → M ED INP 09:06 → M MS5PR 15:15
PROVIDERS: ADMIT General Practice; ATTEND General Practice
DX: F12.288 Cannabis dependence with other cannabis-induced disorder (principal); R11.2 Nausea with vomiting, unspecified; D72.829 Elevated white blood cell count, unspecified; M51.26 Other intervertebral disc displacement, lumbar region; G89.29 Other chronic pain; M54.2 Cervicalgia; K21.9 Gastro-esophageal reflux disease without esophagitis; N83.201 Unspecified ovarian cyst, right side; N83.202 Unspecified ovarian cyst, left side; N20.0 Calculus of kidney; R41.82 Altered mental status, unspecified; R53.1 Weakness; R07.9 Chest pain, unspecified; J98.11 Atelectasis; F14.10 Cocaine abuse, uncomplicated; F11.10 Opioid abuse, uncomplicated; F17.200 Nicotine dependence, unspecified, uncomplicated; F41.9 Anxiety disorder, unspecified; F32.A Depression, unspecified; R93.5 Abnormal findings on diagnostic imaging of other abdominal regions, including retroperitoneum; R20.2 Paresthesia of skin; Z98.891 History of uterine scar from previous surgery; Z98.51 Tubal ligation status; Z79.899 Other long term (current) drug therapy
CPT/HCPCS: 36415; 71046; 72131; 74176; 80047; 80048; 80076; 80307; 81001; 82010; 82550; 82553; 83036; 83605; 83690; 84145; 84484; 84703; 85025; 85652; 86140; 93005; 96361; 96374; 96375; 96376; 99285; J0780; J1171; J1200; J1630; J1885; J2405; J2470; J2550

== ENCOUNTER 2025-06-11 17:52 | Inpatient (IN) | payer OTHER ==
[~2025-06-11] VITALS: Ht 170.2 cm; Wt 75.5 kg
[~2025-06-11 17:52] MED LIST changes: +GABA-1172 PO; +HYDR-3364 PO; +LIDO30CR18 TOP; +MELO15TA28 PO; +PANT40TA29 PO; +SUCR1TA PO; +TIZA10TA PO; +ZOLO100T PO
[2025-06-11 18:41] LABS: BASO # 0.0 10^3/uL (0.0-0.2); BASO % 0.2 % (0.0-1.0); EOS # 0.0 10^3/uL (0.0-0.5); EOS % 0.0 % (0.0-3.0); LYMPH # 1.4 10^3/uL (1.5-5.0); LYMPH % 13.7 % (24.0-44.0); MONO # 0.6 10^3/uL (0.0-0.8); MONO % 6.2 % (2.0-8.0); NEUTROPHILS # 8.0 10^3/uL (1.5-8.5); NEUTROPHILS % 79.4 % (36.0-66.0); PLATELET COUNT, AUTOMATED 254 10^3/uL (150-450)
[2025-06-11 19:11] LABS: HCG, SERUM QUALITATIVE NEGATIVE (NEGATIVE)
[2025-06-11 19:15] LABS: ALT/SGPT 25 U/L (7.0-40); AST/SGOT 25 U/L (<34); CALCIUM LEVEL 8.6 MG/DL (8.5-10.1); CARBON DIOXIDE LEVEL 21 MMOL/L (20-31); CHLORIDE LEVEL 109 MMOL/L (98-107); CK-MB VALUE MASS 6.8 NG/ML (<3.6); CPK CREATINE PHOSPHOKINASE 235 U/L (34-145); CREATININE FOR GFR 0.59 MG/DL (0.55-1.30); GLOMERULAR FILTRATION RATE > 90.0 (>58); MB/CK RELATIVE INDEX 2.89 (< OR =4); POTASSIUM SERUM 3.2 MMOL/L (3.5-5.1); SODIUM LEVEL 140 MMOL/L (136-145)
[2025-06-11] MEDS: KETOROLAC 30 MG/ML 1 ML VIAL IV ONE (20:44)
[2025-06-11] MEDS: HYDROMORPHONE HCL 0.5 MG/0.5 ML SYRINGE IV ONE (22:00)
[2025-06-11 23:43] LABS: MAGNESIUM LEVEL 1.7 MG/DL (1.8-2.4); PHOSPHORUS LEVEL 1.5 MG/DL (2.5-4.9); SALICYLATE LEVEL < 3.0 MG/DL (<30)
[2025-06-11 23:45] LABS: ETHYL ALCOHOL (ETHANOL) < 0.003 % (0.000-0.010)
[2025-06-12] MEDS: KCL 10MEQ/100ML SWI (KRUN) 10 MEQ in IV 1 EA IV SCH (00:24)
[2025-06-12 00:45] VITALS: BP 128/93; TEMP 97.9; O2SAT 100
[2025-06-12] MEDS: PANTOPRAZOLE 40MG VIAL IV SCH (01:21)
[2025-06-12] MEDS: ACETAMINOPHEN *IV* 1,000 MG in IV 1 EA IV ONE (01:22)
[2025-06-12] MEDS: K-PHOS NEUTRAL 250 MG TABLET (SOD.PHOSPHATE/POT.PHOSPHATE) PO SCH (02:26)
[2025-06-12] MEDS: DICLOFENAC EPOLAMINE 1.3% PATCH TOP SCH (02:28)
[2025-06-12] MEDS: METHOCARBAMOL 1,000 MG/10 ML VIAL IV ONE (02:28)
[2025-06-12 03:07] LABS: D-DIMER QUANT < 0.27 ug/mL (<0.5); INR 1.03
[2025-06-12 05:21] VITALS: BP 129/91; TEMP 97.9; O2SAT 95
[2025-06-12] MEDS: SUCRALFATE SUSP 1GM/10ML UD PO SCH (06:26)
[2025-06-12] MEDS: ONDANSETRON 4MG 2ML VIAL IV PRN (08:25)
[2025-06-12] MEDS: MAGNESIUM OXIDE 400 MG TAB PO SCH (08:25)
[2025-06-12 10:14] LABS: PLATELET COUNT, AUTOMATED 256 10^3/uL (150-450)
[2025-06-12] MEDS: MORPHINE 4 MG/ML 1 ML VIAL IV PRN (10:47)
[2025-06-12 10:55] LABS: ALT/SGPT 22 U/L (7.0-40); AST/SGOT 18 U/L (<34); CALCIUM LEVEL 8.8 MG/DL (8.5-10.1); CARBON DIOXIDE LEVEL 21 MMOL/L (20-31); CHLORIDE LEVEL 106 MMOL/L (98-107); CREATININE FOR GFR 0.54 MG/DL (0.55-1.30); GLOMERULAR FILTRATION RATE > 90.0 (>58); MAGNESIUM LEVEL 1.6 MG/DL (1.8-2.4); PHOSPHORUS LEVEL 0.8 MG/DL (2.5-4.9); POTASSIUM SERUM 2.7 MMOL/L (3.5-5.1); SODIUM LEVEL 141 MMOL/L (136-145)
[2025-06-12] MEDS: MAG SULF 1GM/100ML (MAG RUN) 1 GM in IV 1 EA IV SCH (11:41)
[2025-06-12] MEDS ORDERED: HOME MED LIST COMPLETE! XX SCH (12:20)
[2025-06-12] MEDS: KCL 40MEQ IN D5/NS 1000ML 1,000 ML IV SCH (12:57)
[2025-06-12 14:00] VITALS: BP 118/79; TEMP 98.1; O2SAT 96
[2025-06-12] MEDS: POTASSIUM PHOSPHATE INJ 30 MMOL in D5W 500 ML IV ONE (15:01)
[2025-06-12] MEDS: MAALOX 30 ML SUSP *UDC PO PRN (16:40)
[2025-06-12 18:00] VITALS: BP 121/76; TEMP 98.6; O2SAT 98
[2025-06-12 18:06] LABS: CALCIUM LEVEL 8.4 MG/DL (8.5-10.1); CARBON DIOXIDE LEVEL 24 MMOL/L (20-31); CHLORIDE LEVEL 104 MMOL/L (98-107); CREATININE FOR GFR 0.54 MG/DL (0.55-1.30); GLOMERULAR FILTRATION RATE > 90.0 (>58); MAGNESIUM LEVEL 2.4 MG/DL (1.8-2.4); PHOSPHORUS LEVEL 3.8 MG/DL (2.5-4.9); POTASSIUM SERUM 3.3 MMOL/L (3.5-5.1); SODIUM LEVEL 141 MMOL/L (136-145)
[2025-06-12 19:34] VITALS: BP 158/87; TEMP 97.3; O2SAT 97
[2025-06-12 21:00] VITALS: O2SAT 100
[2025-06-13] MEDS: METHOCARBAMOL 1,000 MG/10 ML VIAL IV ONE (01:56)
[2025-06-13] MEDS: ACETAMINOPHEN *IV* 1,000 MG in IV 1 EA IV ONE (01:56)
[2025-06-13 02:29] VITALS: BP 138/78; TEMP 97.7; O2SAT 100
[2025-06-13 04:26] VITALS: BP 166/98; TEMP 97.7; O2SAT 99
[2025-06-13 08:13] LABS: BASO # 0.0 10^3/uL (0.0-0.2); BASO % 0.3 % (0.0-1.0); EOS # 0.0 10^3/uL (0.0-0.5); EOS % 0.0 % (0.0-3.0); LYMPH # 1.3 10^3/uL (1.5-5.0); LYMPH % 15.2 % (24.0-44.0); MONO # 0.8 10^3/uL (0.0-0.8); MONO % 9.3 % (2.0-8.0); NEUTROPHILS # 6.4 10^3/uL (1.5-8.5); NEUTROPHILS % 74.6 % (36.0-66.0); PLATELET COUNT, AUTOMATED 236 10^3/uL (150-450)
[2025-06-13 08:43] LABS: ALT/SGPT 30 U/L (7.0-40); AST/SGOT 36 U/L (<34); CALCIUM LEVEL 7.9 MG/DL (8.5-10.1); CARBON DIOXIDE LEVEL 22 MMOL/L (20-31); CHLORIDE LEVEL 106 MMOL/L (98-107); CREATININE FOR GFR 0.47 MG/DL (0.55-1.30); GLOMERULAR FILTRATION RATE > 90.0 (>58); PHOSPHORUS LEVEL 1.8 MG/DL (2.5-4.9); POTASSIUM SERUM 3.3 MMOL/L (3.5-5.1); SODIUM LEVEL 140 MMOL/L (136-145)
[2025-06-13] MEDS ORDERED: MELOXICAM 7.5 MG TAB PO SCH (09:00)
[2025-06-13] MEDS: GABAPENTIN 300 MG CAP PO SCH (09:00)
[2025-06-13] MEDS: SERTRALINE HCL 50 MG TAB PO SCH (09:00)
[2025-06-13 09:58] LABS: MAGNESIUM LEVEL 2.0 MG/DL (1.8-2.4)
[2025-06-13 10:00] VITALS: BP 141/79; TEMP 97.5; O2SAT 93
[2025-06-13] MEDS: POTASSIUM PHOSPHATE INJ 30 MMOL in D5W 500 ML IV ONE (10:52)
[2025-06-13 14:00] VITALS: BP 139/82; TEMP 97.9; O2SAT 93
[2025-06-13 18:00] VITALS: BP 127/80; TEMP 98.1; O2SAT 94
[2025-06-13 19:44] VITALS: BP 124/80; TEMP 97.3; O2SAT 93
[2025-06-14 04:05] VITALS: BP 124/80; TEMP 97.3; O2SAT 97
[2025-06-14 10:00] VITALS: BP 137/86; TEMP 97.9; O2SAT 93
[2025-06-14 14:00] VITALS: BP 166/93; TEMP 97.7; O2SAT 96
[2025-06-14 16:00] VITALS: BP 162/80; TEMP 96.7; O2SAT 98
[2025-06-14] MEDS ORDERED: **NOTE PATIENT COMMENT** MISC XX SCH (16:50)
[2025-06-15 00:50] VITALS: BP 154/104; TEMP 97.4; O2SAT 95
[2025-06-15 01:44] VITALS: BP 160/102; O2SAT 96
[2025-06-15 02:46] LABS: PLATELET COUNT, AUTOMATED 320 10^3/uL (150-450)
[2025-06-15 03:04] LABS: C REACTIVE PROTEIN QUANTITATIV < 0.50 MG/DL (<1.0)
[2025-06-15 03:06] LABS: ALT/SGPT 51 U/L (7.0-40); AST/SGOT 32 U/L (<34); CALCIUM LEVEL 9.1 MG/DL (8.5-10.1); CARBON DIOXIDE LEVEL 22 MMOL/L (20-31); CHLORIDE LEVEL 103 MMOL/L (98-107); CREATININE FOR GFR 0.47 MG/DL (0.55-1.30); GLOMERULAR FILTRATION RATE > 90.0 (>58); MAGNESIUM LEVEL 2.0 MG/DL (1.8-2.4); PHOSPHORUS LEVEL 3.8 MG/DL (2.5-4.9); POTASSIUM SERUM 4.0 MMOL/L (3.5-5.1); SODIUM LEVEL 137 MMOL/L (136-145)
[2025-06-15 04:18] VITALS: BP 125/89; TEMP 97.7; O2SAT 94
[2025-06-15] MEDS ORDERED: LIDOCAINE 2% 100 MG/5 ML SDV (FOR ANES.) As Ordered ONE (12:29)
[2025-06-15] MEDS: PROCHLORPERAZINE 10MG/2ML VIAL IV STA (14:11)
[2025-06-15 16:30] VITALS: BP 104/73; TEMP 97.7; O2SAT 93
[2025-06-15] MEDS: NS (Normal Saline) 0.9% 1,000 ML IV SCH (16:33)
[2025-06-15 20:00] VITALS: BP 129/76; TEMP 97.7; O2SAT 92
[2025-06-16] VITALS: BP 129/77; TEMP 97.9; O2SAT 92
[2025-06-16 04:00] VITALS: BP 145/81; TEMP 98.7; O2SAT 95
[2025-06-16 07:13] LABS: PLATELET COUNT, AUTOMATED 275 10^3/uL (150-450)
[2025-06-16 07:42] LABS: ALT/SGPT 61 U/L (7.0-40); AST/SGOT 40 U/L (<34); CALCIUM LEVEL 8.6 MG/DL (8.5-10.1); CARBON DIOXIDE LEVEL 24 MMOL/L (20-31); CHLORIDE LEVEL 106 MMOL/L (98-107); CREATININE FOR GFR 0.53 MG/DL (0.55-1.30); GLOMERULAR FILTRATION RATE > 90.0 (>58); MAGNESIUM LEVEL 2.0 MG/DL (1.8-2.4); POTASSIUM SERUM 3.9 MMOL/L (3.5-5.1); SODIUM LEVEL 141 MMOL/L (136-145)
[2025-06-16 08:00] VITALS: BP 137/73; TEMP 98.7; O2SAT 94
[2025-06-16] MEDS ORDERED: MAGN400T33 PO (11:59)
[2025-06-16] MEDS ORDERED: PROM25TA12 PO (12:26)
== END 2025-06-16 12:28 | disposition home or self-care (01) | DRG 776 ==
LOC: M ED 17:52 → M ED INP 17:53 → M MS5PR 06-12 00:43 → OBSVTOIN 06-12 13:15 → M MS5PR 06-16 00:37
PROVIDERS: ADMIT Student in an Organized Health Care Education/Training Program; ATTEND Internal Medicine
PROC: 0DJ08ZZ Inspection of Upper Intestinal Tract, Via Natural or Artificial Opening Endoscopic (ICD-10-PCS; principal; 2025-06-15 14:15)
DX: F12.188 Cannabis abuse with other cannabis-induced disorder (principal); E83.42 Hypomagnesemia; E83.39 Other disorders of phosphorus metabolism; R11.2 Nausea with vomiting, unspecified; K21.00 Gastro-esophageal reflux disease with esophagitis, without bleeding; J45.909 Unspecified asthma, uncomplicated; M47.816 Spondylosis without myelopathy or radiculopathy, lumbar region; F41.9 Anxiety disorder, unspecified; F32.A Depression, unspecified; F17.200 Nicotine dependence, unspecified, uncomplicated; E87.6 Hypokalemia; G89.29 Other chronic pain; M62.830 Muscle spasm of back; R10.13 Epigastric pain; R19.7 Diarrhea, unspecified; Z79.1 Long term (current) use of non-steroidal anti-inflammatories (NSAID); Z79.899 Other long term (current) drug therapy

== ENCOUNTER 2025-06-17 14:53 | Inpatient (IN) | payer OTHER ==
[~2025-06-17] VITALS: Ht 172.7 cm; Wt 70.7 kg
[~2025-06-17 14:53] MED LIST changes: +MAGN400T33 PO; +PROM25TA12 PO
[2025-06-17 16:04] LABS: BASO # 0.1 10^3/uL (0.0-0.2); BASO % 0.4 % (0.0-1.0); EOS # 0.1 10^3/uL (0.0-0.5); EOS % 0.4 % (0.0-3.0); LYMPH # 2.5 10^3/uL (1.5-5.0); LYMPH % 14.8 % (24.0-44.0); MONO # 1.3 10^3/uL (0.0-0.8); MONO % 8.0 % (2.0-8.0); NEUTROPHILS # 12.6 10^3/uL (1.5-8.5); NEUTROPHILS % 75.7 % (36.0-66.0); PLATELET COUNT, AUTOMATED 354 10^3/uL (150-450)
[2025-06-17 16:23] LABS: HCG, SERUM QUALITATIVE NEGATIVE (NEGATIVE)
[2025-06-17 16:25] LABS: ALT/SGPT 42 U/L (7.0-40); AST/SGOT 15 U/L (<34); CALCIUM LEVEL 9.5 MG/DL (8.5-10.1); CARBON DIOXIDE LEVEL 20 MMOL/L (20-31); CHLORIDE LEVEL 102 MMOL/L (98-107); CREATININE FOR GFR 0.54 MG/DL (0.55-1.30); GLOMERULAR FILTRATION RATE > 90.0 (>58); POTASSIUM SERUM 3.1 MMOL/L (3.5-5.1); SODIUM LEVEL 136 MMOL/L (136-145)
[2025-06-17] MEDS: MORPHINE 4 MG/ML 1 ML VIAL IV ONE ×2 (17:40→19:08)
[2025-06-17] MEDS: NS (Normal Saline) 0.9% 1,000 ML IV ONE (17:40)
[2025-06-17] MEDS ORDERED: ISOVUE-370 76% 100 ML VIAL As Ordered ONE (18:51)
[2025-06-17] MEDS: PROCHLORPERAZINE 10MG/2ML VIAL IV ONE (18:56)
[2025-06-17] MEDS: diphenhydrAMINE 50 MG/ML VIAL IV ONE (18:57)
[2025-06-17] MEDS: POTASSIUM CHLORIDE 10% LIQ 20MEQ/15ML UDC PO ONE (20:15)
[2025-06-17] MEDS: HYDROMORPHONE HCL 0.5 MG/0.5 ML SYRINGE IV ONE ×2 (20:20→23:48)
[2025-06-17] MEDS: HALOPERIDOL LACTATE 5 MG/ML VIAL IV ONE (20:32)
[2025-06-17 20:45] LABS: MAGNESIUM LEVEL 1.8 MG/DL (1.8-2.4)
[2025-06-17] MEDS: FIDAXOMICIN 200 MG TAB PO SCH (21:00)
[2025-06-17] MEDS ORDERED: HOME MED LIST COMPLETE! XX SCH (21:25)
[2025-06-17] MEDS: LR 1,000 ML IV SCH (23:48)
[2025-06-18] MEDS: ACETAMINOPHEN *IV* 1,000 MG in IV 1 EA IV SCH (01:00)
[2025-06-18] MEDS: PIPERACILLIN/TAZOBACTAM SOD 3.375 GM in DEXTROSE 5% (D5W) ADV/MINI-BAG 50 ML IV SCH (01:05)
[2025-06-18] MEDS: MORPHINE 4 MG/ML 1 ML VIAL IV PRN (01:06)
[2025-06-18] MEDS: SCOPOLAMINE 1MG TRANSDERMAL PATCH TOP SCH (01:38)
[2025-06-18 02:28] LABS: PLATELET COUNT, AUTOMATED 288 10^3/uL (150-450)
[2025-06-18 03:04] LABS: ALT/SGPT 33 U/L (7.0-40); AST/SGOT 13 U/L (<34); CALCIUM LEVEL 8.3 MG/DL (8.5-10.1); CARBON DIOXIDE LEVEL 20 MMOL/L (20-31); CHLORIDE LEVEL 101 MMOL/L (98-107); CREATININE FOR GFR 0.51 MG/DL (0.55-1.30); GLOMERULAR FILTRATION RATE > 90.0 (>58); POTASSIUM SERUM 3.3 MMOL/L (3.5-5.1); SODIUM LEVEL 136 MMOL/L (136-145)
[2025-06-18] MEDS ORDERED: POTASSIUM CHLORIDE 10% LIQ 20MEQ/15ML UDC PO ONE (04:00)
[2025-06-18] MEDS: KCL 10MEQ/100ML SWI (KRUN) 10 MEQ in IV 1 EA IV SCH (04:19)
[2025-06-18] MEDS: MAG SULF 1GM/100ML (MAG RUN) 1 GM in IV 1 EA IV ONE ×2 (04:19→16:09)
[2025-06-18 10:48] VITALS: BP 125/75; TEMP 97.3; O2SAT 97
[2025-06-18] MEDS: KCL 40MEQ in NS 1000ML 1,000 ML IV SCH (11:08)
[2025-06-18] MEDS: POTASSIUM CHLORIDE 10MEQ SR TABLET PO ONE (11:10)
[2025-06-18] MEDS: HEPARIN SOD 5000 UNITS/ML 1 ML VIAL/SYRINGE SQ SCH (11:10)
[2025-06-18] MEDS: MORPHINE 10 MG/ML 1 ML VIAL IV PRN (11:10)
[2025-06-18] MEDS: PANTOPRAZOLE 40MG VIAL IV SCH (11:32)
[2025-06-18 12:11] LABS: APPEARANCE, URINE CLEAR (CLEAR); BACTERIA, URINE AUTO NEGATIVE (NEGATIVE); BILIRUBIN, URINE AUTO NEGATIVE (NEGATIVE); BLOOD, URINE BLOOD NEGATIVE (NEGATIVE); GLUCOSE, URINE (UA) AUTO NEGATIVE (NEGATIVE); KETONE, URINE AUTO TRACE mg/dL (NEGATIVE); LEUKOCYTE ESTERASE, URINE AUTO NEGATIVE (NEGATIVE); MUCUS, URINE SMALL (NEGATIVE); NITRITE, URINE AUTO NEGATIVE (NEGATIVE); PROTEIN, URINE AUTO NEGATIVE (NEGATIVE); RBC, URINE AUTO 0 /HPF (0-3); SPECIFIC GRAVITY URINE AUTO 1.004 (1.002-1.035); SQUAMOUS EPITHELIAL CELL UR AU 1 /HPF (0-6); UROBILINOGEN, URINE AUTO 0.2 mg/dL (0.0-2.0); WBC, URINE AUTO 1 /HPF (0-3)
[2025-06-18 12:46] LABS: AMPHETAMINES LEVEL URINE NEGATIVE (NEGATIVE)
[2025-06-18 12:47] LABS: BARBITURATES URINE NEGATIVE (NEGATIVE); BENZODIAZEPINES URINE NEGATIVE (NEGATIVE); COCAINE METABOLITE URINE NEGATIVE (NEGATIVE); METHADONE URINE NEGATIVE (NEGATIVE); PHENCYCLIDINE URINE NEGATIVE (NEGATIVE)
[2025-06-18 12:50] LABS: CANNABINOIDS URINE POSITIVE (NEGATIVE); OPIATES URINE POSITIVE (NEGATIVE)
[2025-06-18] MEDS: CALCIUM GLUCONATE 1,000 MG in DEXTROSE 5% (D5W) MINI-BAG PLU 100 ML IV ONE (14:11)
[2025-06-18 20:10] VITALS: BP 120/67; TEMP 97.3; O2SAT 96
[2025-06-19 03:55] VITALS: BP 117/61; TEMP 97; O2SAT 94
[2025-06-19 06:23] LABS: PLATELET COUNT, AUTOMATED 263 10^3/uL (150-450)
[2025-06-19 06:55] LABS: ALT/SGPT 29 U/L (7.0-40); AST/SGOT 24 U/L (<34); CALCIUM LEVEL 8.4 MG/DL (8.5-10.1); CARBON DIOXIDE LEVEL 23 MMOL/L (20-31); CHLORIDE LEVEL 110 MMOL/L (98-107); CREATININE FOR GFR 0.56 MG/DL (0.55-1.30); GLOMERULAR FILTRATION RATE > 90.0 (>58); POTASSIUM SERUM 4.7 MMOL/L (3.5-5.1); SODIUM LEVEL 141 MMOL/L (136-145)
[2025-06-19 12:00] VITALS: BP 134/79; TEMP 97.2; O2SAT 93
[2025-06-19 21:22] VITALS: BP 112/68; TEMP 97.3; O2SAT 97
[2025-06-20 03:36] VITALS: BP 116/75; TEMP 97.3; O2SAT 95
[2025-06-20 06:36] LABS: PLATELET COUNT, AUTOMATED 274 10^3/uL (150-450)
[2025-06-20] MEDS ORDERED: PROMETHAZINE 25 MG TAB PO PRN (06:40)
[2025-06-20] MEDS ORDERED: PERCOCET 5MG/325MG TAB PO PRN (06:40)
[2025-06-20] MEDS ORDERED: NALOXONE INJ 0.4 MG/1 ML VIAL IV PRN (06:40)
[2025-06-20 07:10] LABS: ALT/SGPT 61 U/L (7.0-40); AST/SGOT 47 U/L (<34); CALCIUM LEVEL 9.1 MG/DL (8.5-10.1); CARBON DIOXIDE LEVEL 26 MMOL/L (20-31); CHLORIDE LEVEL 104 MMOL/L (98-107); CREATININE FOR GFR 0.66 MG/DL (0.55-1.30); GLOMERULAR FILTRATION RATE > 90.0 (>58); POTASSIUM SERUM 4.3 MMOL/L (3.5-5.1); SODIUM LEVEL 139 MMOL/L (136-145)
[2025-06-20] MEDS: ONDANSETRON 4MG ORAL DISINTEGRATING TAB PO SCH (07:30)
[2025-06-20] MEDS: PANTOPRAZOLE 40MG TAB PO SCH (08:24)
[2025-06-20] MEDS: PERCOCET 5MG/325MG TAB PO PRN (08:24)
[2025-06-20] MEDS: KETOROLAC 30 MG/ML 1 ML VIAL IV SCH (08:25)
[2025-06-20] MEDS ORDERED: MORPHINE SULFATE TAB IMM. REL. 15 MG PO PRN (09:30)
[2025-06-20] MEDS: MORPHINE SULFATE TAB EXT REL 15 MG PO SCH (09:55)
[2025-06-20] MEDS: MORPHINE SULFATE TAB IMM. REL. 30 MG PO ONE (09:56)
[2025-06-20] MEDS: HYDROMORPHONE HCL 0.5 MG/0.5 ML SYRINGE IV ONE (11:27)
[2025-06-20] MEDS: NS (Normal Saline) 0.9% 1,000 ML IV ONE (11:27)
[2025-06-20] MEDS: ACETAMINOPHEN 500 MG TAB PO ONE (11:44)
[2025-06-20 12:00] VITALS: BP 125/93; TEMP 97.7; O2SAT 95
[2025-06-20] MEDS ORDERED: TRAN1DIS4 TOP (13:12)
[2025-06-20] MEDS ORDERED: BACI1CAP PO (13:12)
[2025-06-20] MEDS ORDERED: LEVO1TAB40 PO (13:12)
[2025-06-20] MEDS ORDERED: PROM25SU3 PR (13:12)
[2025-06-20] MEDS ORDERED: ONDA-284 PO (13:12)
[2025-06-20] MEDS ORDERED: METR-265 PO (13:12)
[2025-06-20] MEDS ORDERED: IBUPROFEN 600 MG TAB PO ONE (16:00)
== END 2025-06-20 14:17 | disposition home or self-care (01) | DRG 249 ==
LOC: M ED 14:53 → M ED INP 06-18 08:53 → M MSPAV 06-18 10:48
PROVIDERS: ADMIT General Practice; ATTEND General Practice
DX: K52.9 Noninfective gastroenteritis and colitis, unspecified (principal); E83.42 Hypomagnesemia; F12.10 Cannabis abuse, uncomplicated; R94.31 Abnormal electrocardiogram [ECG] [EKG]; M47.816 Spondylosis without myelopathy or radiculopathy, lumbar region; G89.29 Other chronic pain; K21.00 Gastro-esophageal reflux disease with esophagitis, without bleeding; J45.909 Unspecified asthma, uncomplicated; F41.9 Anxiety disorder, unspecified; F32.A Depression, unspecified; E87.6 Hypokalemia; F17.210 Nicotine dependence, cigarettes, uncomplicated; M54.2 Cervicalgia; R74.01 Elevation of levels of liver transaminase levels; Z79.1 Long term (current) use of non-steroidal anti-inflammatories (NSAID); Z79.899 Other long term (current) drug therapy

== ENCOUNTER 2025-06-29 04:39 | Observation (INO) | payer MEDICAID, OTHER ==
[~2025-06-29] VITALS: Ht 167.6 cm; Wt 71.7 kg
[~2025-06-29 04:39] MED LIST changes: +BACI1CAP PO; +LEVO1TAB40 PO; +METR-265 PO; +ONDA-284 PO; +PROM25SU3 PR; +TRAN1DIS4 TOP
[2025-06-29 05:16] LABS: BASO # 0.1 10^3/uL (0.0-0.2); BASO % 0.3 % (0.0-1.0); EOS # 0.1 10^3/uL (0.0-0.5); EOS % 0.5 % (0.0-3.0); LYMPH # 1.8 10^3/uL (1.5-5.0); LYMPH % 10.3 % (24.0-44.0); MONO # 0.9 10^3/uL (0.0-0.8); MONO % 5.0 % (2.0-8.0); NEUTROPHILS # 14.8 10^3/uL (1.5-8.5); NEUTROPHILS % 83.2 % (36.0-66.0); PLATELET COUNT, AUTOMATED 305 10^3/uL (150-450)
[2025-06-29 06:00] LABS: ALT/SGPT 23 U/L (7.0-40); AST/SGOT 20 U/L (<34); CALCIUM LEVEL 9.6 MG/DL (8.5-10.1); CARBON DIOXIDE LEVEL 15 MMOL/L (20-31); CHLORIDE LEVEL 108 MMOL/L (98-107); CREATININE FOR GFR 0.50 MG/DL (0.55-1.30); GLOMERULAR FILTRATION RATE > 90.0 (>58); POTASSIUM SERUM 3.9 MMOL/L (3.5-5.1); SODIUM LEVEL 139 MMOL/L (136-145)
[2025-06-29] MEDS: diphenhydrAMINE 50 MG/ML VIAL IV ONE (08:54)
[2025-06-29] MEDS: HALOPERIDOL LACTATE 5 MG/ML VIAL IV ONE (08:54)
[2025-06-29] MEDS: PROCHLORPERAZINE 10MG/2ML VIAL IV ONE (10:03)
[2025-06-29 10:06] LABS: AMPHETAMINES LEVEL URINE NEGATIVE (NEGATIVE); BARBITURATES URINE NEGATIVE (NEGATIVE); BENZODIAZEPINES URINE NEGATIVE (NEGATIVE); COCAINE METABOLITE URINE NEGATIVE (NEGATIVE); METHADONE URINE NEGATIVE (NEGATIVE); PHENCYCLIDINE URINE NEGATIVE (NEGATIVE)
[2025-06-29 10:22] LABS: CANNABINOIDS URINE POSITIVE (NEGATIVE); OPIATES URINE POSITIVE (NEGATIVE)
[2025-06-29] MEDS ORDERED: TRAN1DIS4 TOP (11:19)
[2025-06-29] MEDS ORDERED: MAGN400T2 PO (11:19)
[2025-06-29] MEDS ORDERED: HOME MED LIST COMPLETE! XX SCH (11:20)
[2025-06-29] MEDS: KETOROLAC 30 MG/ML 1 ML VIAL IV ONE (11:34)
[2025-06-29] MEDS: SODIUM CHLORIDE 0.9% 1000 ML IV STA (12:29)
[2025-06-29] MEDS ORDERED: ISOVUE-370 76% 100 ML VIAL As Ordered ONE (15:12)
[2025-06-29] MEDS: NS (Normal Saline) 0.9% 1,000 ML IV SCH (16:11)
[2025-06-29] MEDS: GABAPENTIN 300 MG CAP PO SCH (16:11)
[2025-06-29] MEDS: PIPERACILLIN/TAZOBACTAM SOD 3.375 GM in DEXTROSE 5% (D5W) ADV/MINI-BAG 50 ML IV ONE (16:11)
[2025-06-29] MEDS: ENOXAPARIN 40 MG/0.4 ML SYRINGE (J1650 PER 10MG) SC SCH (16:11)
[2025-06-29 18:13] VITALS: BP 112/60; TEMP 99.8; O2SAT 97
[2025-06-29] MEDS: VANCOMYCIN HCL 1,500 MG, VIAL MATE ADAPTER 1 EACH in NS 500 ML IV ONE (18:30)
[2025-06-29 19:57] VITALS: BP 114/66; TEMP 99.2; O2SAT 98
[2025-06-29] MEDS: PANTOPRAZOLE 40MG TAB PO SCH (20:29)
[2025-06-30] MEDS: PIPERACILLIN/TAZOBACTAM SOD 3.375 GM in DEXTROSE 5% (D5W) ADV/MINI-BAG 50 ML IV SCH (00:01)
[2025-06-30 00:06] VITALS: BP 119/69; TEMP 98.6; O2SAT 94
[2025-06-30 03:31] VITALS: BP 102/65; TEMP 98.8; O2SAT 96
[2025-06-30] MEDS: VANCOMYCIN HCL 1,000 MG, VIAL MATE ADAPTER 1 EACH in NS 250 ML IP SCH (03:34)
[2025-06-30] MEDS: KETOROLAC 30 MG/ML 1 ML VIAL IV ONE (05:30)
[2025-06-30 05:35] LABS: PLATELET COUNT, AUTOMATED 233 10^3/uL (150-450)
[2025-06-30 05:48] LABS: ALT/SGPT 18 U/L (7.0-40); AST/SGOT 21 U/L (<34); CALCIUM LEVEL 7.2 MG/DL (8.5-10.1); CARBON DIOXIDE LEVEL 17 MMOL/L (20-31); CHLORIDE LEVEL 113 MMOL/L (98-107); CREATININE FOR GFR 0.52 MG/DL (0.55-1.30); GLOMERULAR FILTRATION RATE > 90.0 (>58); MAGNESIUM LEVEL 1.6 MG/DL (1.8-2.4); POTASSIUM SERUM 3.6 MMOL/L (3.5-5.1); SODIUM LEVEL 142 MMOL/L (136-145)
[2025-06-30] MEDS ORDERED: LR 1,000 ML IV SCH (07:25)
[2025-06-30 08:38] VITALS: BP 120/66; TEMP 98.9; O2SAT 97
[2025-06-30] MEDS ORDERED: PIPERACILLIN/TAZOBACTAM SOD 3.375 GM in DEXTROSE 5% (D5W) ADV/MINI-BAG 50 ML IV SCH (10:00)
[2025-06-30] MEDS ORDERED: VANCOMYCIN HCL 750 MG, VIAL MATE ADAPTER 1 EACH in NS 250 ML IV SCH (11:00)
[2025-06-30] MEDS: POTASSIUM CHLORIDE 10% LIQ 20MEQ/15ML UDC PO ONE (11:07)
[2025-06-30] MEDS: MAGNESIUM OXIDE 400 MG TAB PO SCH (11:09)
[2025-06-30] MEDS: ACETAMINOPHEN 325 MG TAB PO PRN (11:09)
[2025-06-30] MEDS: SERTRALINE HCL 50 MG TAB PO SCH (11:10)
[2025-06-30] MEDS: MAG SULF 1GM/100ML (MAG RUN) 1 GM in IV 1 EA IV SCH (11:16)
[2025-06-30 12:30] VITALS: BP 118/67; TEMP 98.8; O2SAT 96
[2025-06-30] MEDS: MORPHINE 4 MG/ML 1 ML VIAL IV PRN ×2 (12:40→19:03)
[2025-06-30 20:04] VITALS: BP 127/74; TEMP 97.6; O2SAT 97
[2025-06-30 23:57] VITALS: BP 128/72; TEMP 98; O2SAT 98
[2025-07-01 04:16] VITALS: BP 110/69; TEMP 97.2; O2SAT 95
[2025-07-01 06:03] LABS: PLATELET COUNT, AUTOMATED 216 10^3/uL (150-450)
[2025-07-01 06:38] LABS: ALT/SGPT 28 U/L (7.0-40); AST/SGOT 33 U/L (<34); CALCIUM LEVEL 7.9 MG/DL (8.5-10.1); CARBON DIOXIDE LEVEL 21 MMOL/L (20-31); CHLORIDE LEVEL 109 MMOL/L (98-107); CREATININE FOR GFR 0.51 MG/DL (0.55-1.30); GLOMERULAR FILTRATION RATE > 90.0 (>58); MAGNESIUM LEVEL 2.1 MG/DL (1.8-2.4); POTASSIUM SERUM 3.5 MMOL/L (3.5-5.1); SODIUM LEVEL 141 MMOL/L (136-145)
[2025-07-01 08:28] VITALS: BP 134/81; TEMP 97.3; O2SAT 97
[2025-07-01 12:00] VITALS: BP 143/84; TEMP 98.6; O2SAT 98
[2025-07-01] MEDS ORDERED: REGL5TAB2 PO (12:02)
== END 2025-07-01 15:00 | disposition home or self-care (01) ==
LOC: M ED 04:39 → M ED INP 14:47 → INTOOBSV 14:47 → M PCU 18:01
PROVIDERS: ADMIT Student in an Organized Health Care Education/Training Program; ATTEND Student in an Organized Health Care Education/Training Program
DX: A08.11 Acute gastroenteropathy due to Norwalk agent (principal); E87.20 Acidosis, unspecified; K27.9 Peptic ulcer, site unspecified, unspecified as acute or chronic, without hemorrhage or perforation; F32.A Depression, unspecified; F41.9 Anxiety disorder, unspecified; M62.838 Other muscle spasm; G47.00 Insomnia, unspecified; G62.9 Polyneuropathy, unspecified; Z79.899 Other long term (current) drug therapy
CPT/HCPCS: 36415; 74174; 74176; 80048; 80053; 80076; 80202; 80307; 83605; 83690; 83735; 85025; 85027; 87040; 87507; 87641; 93041; 96361; 96365; 96366; 96367; 96372; 96375; 96376; 99285; J0780; J1200; J1630; J1650; J1885; J2543; J2765; J3373; J3374; J3475; Q9967